=== PATIENT | female | born 1995 ===

== ENCOUNTER 2022-11-02 08:32 | Outpatient (CLI) | payer OTHER | END 2022-11-02 08:37 | disposition home or self-care (01) | LOC: RAD 08:32 | DX: M99.01 Segmental and somatic dysfunction of cervical region (principal); M99.02 Segmental and somatic dysfunction of thoracic region ==

== ENCOUNTER 2023-04-19 11:13 | Outpatient (CLI) | payer OTHER ==
[2023-04-19 12:23] LABS: CHOL HDL RATIO 2.9 (0-5.0)
== END 2023-04-19 13:24 | disposition home or self-care (01) ==
LOC: LAB 11:13
DX: E78.00 Pure hypercholesterolemia, unspecified (principal)

== ENCOUNTER → 2024-03-27 08:07 | Outpatient (CLI) | payer OTHER ==
[2024-03-27 08:58] LABS: URINE APPEARANCE Clear; URINE BILIRRUBIN Negative (NEGATIVE); URINE BLOOD Negative; URINE COLOR Yellow; URINE GLUCOSE Negative (NEGATIVE); URINE KETONE Negative (NEGATIVE); URINE LEUKOCYTE Trace; URINE NITRATE Negative; URINE PROTEIN Negative (NEGATIVE)
[2024-03-27 09:02] LABS: URINE BACTERIA 420.9 uL (0.0-1933); URINE EPITHELIAL CELLS 30.5 uL (0.0-38.8); URINE RBC 8.8 uL (0.0-20.8); URINE WBC 30.8 uL (0.0-23.2)
[2024-03-27 09:08] LABS: URINE CAST 0.73 uL (0.0-1.40)
[2024-03-27 09:37] LABS: HEMATOCRIT 38.1 % (36.0-45.00); HEMOGLOBIN 12.7 g/dL (12.0-15.00); MEAN CELL VOLUME 83.4 fL (80.00-100.00); MEAN CORPUSCULAR HEMOGLOBIN 27.8 pg (27.00-32.0); MEAN CORPUSCULAR HGB CONC 33.4 g/dl (32.0-36.0); PLATELET COUNT 240 K/uL (150-450); RED BLOOD COUNT 4.57 M/uL (4.00-6.00); RED CELL DISTRIBUTION WIDTH 12.9 % (11.5-14.5)
[2024-03-27 09:57] LABS: BILIRUBIN TOTAL 0.61 mg/dL (0.3-1.2); CALCIUM 9.5 mg/dL (8.5-10.1); CHOL HDL RATIO 2.2 (0-5.0); CREATININE SERUM 0.78 mg/dL (0.55-1.02); GFR 87.32; GLOBULINA 3.1 G/DL (2.4-3.5); POTASSIUM 4.32 mEq/L (3.5-5.1); TOTAL PROTEIN 7.1 gm/dL (6.4-8.2); TSH 3.46 uIU/mL (0.358-3.74)
== END | disposition home or self-care (01) ==
LOC: LAB 08:07
PROVIDERS: ATTEND General Practice
DX: N39.0 Urinary tract infection, site not specified (principal); E78.5 Hyperlipidemia, unspecified; Z13.29 Encounter for screening for other suspected endocrine disorder

== ENCOUNTER → 2025-01-01 08:00 | Outpatient (CLI) | payer OTHER ==
[2025-01-01 10:32] LABS: BASO % 0.8 % (0.1-1.2); EOS # 0.29 (0.04-0.54); EOS % 5.6 % (0.7-7.0); LYMPH # 1.57 (1.18-3.74); LYMPH % 30.3 % (19.3-53.1); MEAN PLATELET VOLUME 11.30 fl (9.4-12.4); MONO # 0.37 (0.24-0.82); MONO % 7.1 % (4.7-12.5); NEUT # 2.91 (1.56-6.13); NEUT % 56.0 % (34.0-71.1); RED CELL DISTRIBUTION WIDTH 12.5 % (11.6-14.4)
[2025-01-01 10:34] LABS: URINE APPEARANCE Clear; URINE BILIRRUBIN Negative (NEGATIVE); URINE BLOOD Negative; URINE COLOR Yellow; URINE GLUCOSE Negative (NEGATIVE); URINE KETONE Negative (NEGATIVE); URINE LEUKOCYTE Trace; URINE NITRATE Negative; URINE PROTEIN Negative (NEGATIVE); URINE UROBILINOGEN 0.2 E.U./dl
[2025-01-01 10:38] LABS: URINE BACTERIA 171.6 uL (0.0-1933); URINE EPITHELIAL CELLS 3.6 uL (0.0-38.8); URINE RBC 2.1 uL (0.0-20.8); URINE WBC 10.0 uL (0.0-23.2)
[2025-01-01 10:58] LABS: URINE CAST 0.00 uL (0.0-1.40)
[2025-01-01 11:23] LABS: ALT/SGPT 24.0 U/L (12-78); AST/SGOT 13.0 U/L (15-37); BILIRUBIN TOTAL 0.56 mg/dL (0.3-1.2); BUN CREA RATIO 22.0 (7.0-25.0); CHOL HDL RATIO 2.6 (0-5.0); CREATININE SERUM 0.6 mg/dL (0.55-1.02); GFR 117.38; GLOBULINA 3.3 G/DL (2.4-3.5); GLUCOSE FASTING 90.0 mg/dL (65-100); HDL 70.0 mg/dl (40-60); LDL 107.0 mg/dl (0-130); OSMOLALITY SERUM 279.0 MOSM/KG (275-295); T4 TOTAL 8.66 UG/DL (4.8-13.9); TSH 2.2 uIU/mL (0.358-3.74); VLDL 7.0 (0-39)
== END | disposition home or self-care (01) ==
LOC: LAB 08:00
PROVIDERS: ATTEND General Practice
DX: N92.5 Other specified irregular menstruation (principal); L68.2 Localized hypertrichosis; E78.5 Hyperlipidemia, unspecified; Z13.29 Encounter for screening for other suspected endocrine disorder; N39.0 Urinary tract infection, site not specified; J06.9 Acute upper respiratory infection, unspecified

== ENCOUNTER 2025-01-05 07:06 | Outpatient (CLI) | payer OTHER | END 2025-01-05 07:08 | disposition home or self-care (01) | LOC: SONOGRAMA 07:06 | PROVIDERS: ATTEND General Practice | DX: N92.5 Other specified irregular menstruation (principal); L68.2 Localized hypertrichosis ==